=== PATIENT | male | born 1955 | race Caucasian/White ===

== ENCOUNTER → 2024-05-24 09:03 | Outpatient (CLI) | payer MEDICARE, OTHER, SELFPAY ==
[2024-05-24 10:02] LABS: Hematocrit 48.6 % (41-53); Hemoglobin 16.5 g/dL (13.5-17.5); Mean Corpuscular HGB Conc 33.9 % (30-36); Mean Corpuscular Hemoglobin 32.5 PG (26-34); Mean Corpuscular Volume 95.9 fL (80-100); Platelet Count 236 X10^3/uL (150-400); Red Blood Cell Count 5.07 X10^6/uL (4.5-5.9); Red Cell Distribution Width 13.7 % (11.6-14.8); White Blood Cell Count 7.5 X10^3/uL (4.5-11.0)
[2024-05-24 10:35] LABS: Alanine Aminotransferase 22 IU/L (<50); Albumin 4.4 g/dL (3.5-5.0); Albumin Globulin Ratio 1.6 (1.0-2.8); Alkaline Phosphatase 76 U/L (38-126); Aspartate Aminotransferase 24 IU/L (17-59); BUN Creatinine Ratio 22.4 (6-22); Bilirubin Total 0.7 mg/dL (0.2-1.3); Blood Urea Nitrogen 26 mg/dL (9-20); Calcium 9.5 mg/dL (8.4-10.2); Carbon Dioxide 24 mmol/L (22-32); Chloride 106 mmol/L (98-107); Cholesterol 216 mg/dL (140-199); Estimated Glomerular Filt Rate > 60 mL/min (>60); Globulin 2.7 g/dL (1.7-4.1); Glucose 118 mg/dL (80-110); HDL Cholesterol 62 mg/dL (40-60); HEMOLYSIS < 15 (0-50); LDL Cholesterol Calculated 128 mg/dL (<100); Potassium 4.8 mmol/L (3.4-5.1); Sodium 139 mmol/L (137-145); Total Protein 7.1 g/dL (6.3-8.2); Triglycerides 128 mg/dL (35-150)
[2024-05-24 10:58] LABS: Prostate Specific Antigen Scrn 1.67 ng/mL (0.1-4.0)
[2024-05-24 11:03] LABS: Hep C Virus Ab w/Reflex Quant NEGATIVE s/c (NEGATIVE)
== END ==
PROVIDERS: PCP Family Medicine; Referring Provider Family Medicine; Visit Provider Family Medicine
DX: Z12.5 Encounter for screening for malignant neoplasm of prostate (principal); Z11.59 Encounter for screening for other viral diseases; Z00.00 Encounter for general adult medical examination without abnormal findings; I10 Essential (primary) hypertension; F17.200 Nicotine dependence, unspecified, uncomplicated; Z98.890 Other specified postprocedural states
CPT/HCPCS: 36415; 80053; 80061; 85027; 86803; G0103

== ENCOUNTER → 2024-06-11 11:03 | Outpatient (CLI) | payer MEDICARE, OTHER, SELFPAY ==
--- NOTE | 2024-06-11 11:05 | DI.CT.S_ITS ---
PROCEDURE: CT LUNG LOW DOSE SCREENING INDICATIONS: screening TECHNIQUE: Noncontrast 2.0-2.5 mm thick sections acquired from the pulmonary apices to the posterior costophrenic angles. 7 mm thick axial MIP, and 5 mm coronal and sagittal reformats were then acquired. For radiation dose reduction, the following was used: automated exposure control, adjustment of mA and/or kV according to patient size. COMPARISON: None. FINDINGS: Image quality: Diagnostic. Lower Neck: No enlarged lymph nodes. Thyroid: No thyroid nodules which require sonographic follow up, per consensus guidelines. Axillae: No enlarged lymph nodes. Chest Wall: Unremarkable. Bones: DISH changes of the spine. Lungs and Pleura: No pneumothorax or pleural effusions. No consolidation or suspicious nodules. Heart: Mild cardiomegaly. Severe coronary calcifications Thoracic Vessels: The aorta and pulmonary arteries demonstrate normal size. Mediastinum and Jailene: No enlarged lymph nodes. Esophagus: No wall thickening. No hiatal hernia. Upper Abdomen: Fat density 1.5 centimeter left adrenal nodule, benign IMPRESSION: No suspicious pulmonary nodules. LUNG-RADS 1; continued annual screening, if eligible. Clinically Significant Non-pulmonary Findings: Mild cardiomegaly, severe coronary calcifications, DISH changes of the spine. Dictated by: Kristian Lea M.D. on 06/11/2024 at 16:26 Approved by: Kristian Lea M.D. on 06/11/2024 at 16:33
--- NOTE | 2024-06-11 11:05 | DI.US.S_ITS ---
PROCEDURE: US ABD AORTA ANEURYSM SCREEN INDICATIONS: screening for, clinical suspicion of abdominal aortic aneurysm TECHNIQUE: Real-time scanning was performed of the aorta and proximal common iliac arteries, with image documentation. COMPARISON: None. FINDINGS: Aorta: Abdominal aorta is normal in caliber throughout its length measuring approximately: Proximal 2.0 cm diameter Mid aorta 2.4 cm diameter Distal aorta 2.0 cm diameter Right common iliac artery 1.4 cm Left common iliac artery 1.4 cm IMPRESSION: No ultrasound evidence of abdominal aortic aneurysm. Dictated by: Benny Reyes M.D. on 06/11/2024 at 12:31 Approved by: Benny Reyes M.D. on 06/11/2024 at 12:33
== END ==
PROVIDERS: PCP Family Medicine; Referring Provider Family Medicine; Visit Provider Family Medicine
DX: F17.210 Nicotine dependence, cigarettes, uncomplicated (principal); Z12.2 Encounter for screening for malignant neoplasm of respiratory organs; Z13.6 Encounter for screening for cardiovascular disorders; I51.7 Cardiomegaly; I25.10 Atherosclerotic heart disease of native coronary artery without angina pectoris
CPT/HCPCS: 71271; 76706

== ENCOUNTER → 2025-07-05 11:38 | Outpatient (CLI) | payer MEDICARE, OTHER, SELFPAY ==
[2025-07-05 13:55] LABS: Alanine Aminotransferase 28 IU/L (<50); Albumin 4.5 g/dL (3.5-5.0); Albumin Globulin Ratio 1.6 (1.0-2.8); Alkaline Phosphatase 86 U/L (38-126); Blood Urea Nitrogen 20 mg/dL (9-20); Calcium 9.8 mg/dL (8.4-10.2); Carbon Dioxide 24 mmol/L (22-32); Chloride 105 mmol/L (98-107); Cholesterol 143 mg/dL (140-199); Estimated Glomerular Filt Rate > 60 mL/min (>60); Globulin 2.9 g/dL (1.7-4.1); Glucose 100 mg/dL (70-99); HDL Cholesterol 57 mg/dL (40-60); HEMOLYSIS < 15 (0-50); Potassium 4.8 mmol/L (3.4-5.1); Sodium 138 mmol/L (137-145); Total Protein 7.4 g/dL (6.3-8.2); Triglycerides 149 mg/dL (35-150); Uric Acid 6.2 mg/dL (3.5-8.5)
== END ==
PROVIDERS: PCP Family Medicine; Referring Provider Family Medicine; Visit Provider Family Medicine
DX: Z00.00 Encounter for general adult medical examination without abnormal findings (principal); E78.5 Hyperlipidemia, unspecified; Z12.5 Encounter for screening for malignant neoplasm of prostate; F17.200 Nicotine dependence, unspecified, uncomplicated; I10 Essential (primary) hypertension
CPT/HCPCS: 36415; 80053; 80061; 84550; G0103

== ENCOUNTER → 2025-07-09 13:35 | Outpatient (CLI) | payer MEDICARE, OTHER, SELFPAY ==
--- NOTE | 2025-07-09 13:37 | DI.CT.S_ITS ---
PROCEDURE: CT LUNG LOW DOSE SCREENING INDICATIONS: screening TECHNIQUE: Noncontrast 2.0-2.5 mm thick sections acquired from the pulmonary apices to the posterior costophrenic angles. 7 mm thick axial MIP, and 5 mm coronal and sagittal reformats were then acquired. For radiation dose reduction, the following was used: automated exposure control, adjustment of mA and/or kV according to patient size. COMPARISON: [facility], CT, CT LUNG LOW DOSE SCREENING, 06/11/2024, 11:11. FINDINGS: Image quality: Diagnostic. Lungs and Pleura: Small amount of mucus in the dependent trachea at the bifurcation. Airways are otherwise patent without significant bronchial wall thickening or bronchiectasis. Micro nodule in the right middle lobe. Otherwise no significant lung nodules, masses, ground-glass opacities, or consolidations. Bilateral lower lung atelectasis. No pleural effusions or pleural calcifications. Lower Neck: No enlarged lymph nodes. Thyroid: Normal CT appearance. Axillae: No enlarged lymph nodes. Chest Wall: No suspicious chest wall lesions. Bones: Thoracic spine flowing osteophytes. No suspicious bone lesions. Thoracic Vessels: The aorta and pulmonary arteries demonstrate normal size. Mediastinum and Jailene: No enlarged lymph nodes. Heart: Heart size is normal. Moderate coronary artery calcification versus stenting. Mitral annular calcification. No pericardial effusion. Esophagus: No wall thickening. No hiatal hernia. Upper Abdomen: Fat containing left adrenal nodule, stable. Visible portions of upper abdominal organs are otherwise normal. IMPRESSION: No suspicious pulmonary nodules. LUNG-RADS 1; continued annual screening, if eligible. Clinically Significant Non-pulmonary Findings: Coronary artery and mitral annular calcification. Dictated by: Lupe Mcgee M.D. on 07/09/2025 at 16:14 Approved by: Lupe Mcgee M.D. on 07/09/2025 at 16:23
== END ==
LOC: CT 13:37
PROVIDERS: PCP Family Medicine; Referring Provider Family Medicine; Visit Provider Family Medicine
DX: F17.210 Nicotine dependence, cigarettes, uncomplicated (principal); I25.10 Atherosclerotic heart disease of native coronary artery without angina pectoris; I34.81 Nonrheumatic mitral (valve) annulus calcification
CPT/HCPCS: 71271

== ENCOUNTER 2025-07-09 14:06 | Emergency (ER) | payer MEDICARE, OTHER, SELFPAY ==
[2025-07-09 14:13] VITALS: BP 192/95; PULSE 87; RESP 16; TEMP 36.8; O2SAT 99; BMI 29.5
--- NOTE | 2025-07-09 14:18 | DI.RAD.S_ITS ---
PROCEDURE: XR KNEE LT 3V INDICATIONS: pain/redness/swelling TECHNIQUE: 3 views of the knee were acquired. COMPARISON: None. FINDINGS: Moderate degenerative changes of the left knee with joint space narrowing and osteophytes in the patellofemoral greater than medial and lateral compartments Kellgren Bethel grade 3. Moderate knee joint effusion. Nonspecific mild anterior soft tissue swelling. Moderate lateral subluxation and lateral tilt of the patella on the patella sunrise image. No radiographic evidence of displaced fracture, or high attenuation foreign body. IMPRESSION: Degenerative changes as discussed above. Moderate knee joint effusion. Lateral subluxation and tilt of the patella. If symptoms persist or worsen, or there is high clinical suspicion of knee abnormality, MRI could be performed. Dictated by: Benny Reyes M.D. on 07/09/2025 at 15:25 Approved by: Benny Reyes M.D. on 07/09/2025 at 15:34
--- NOTE | 2025-07-09 14:44 | ED.EXTPRO ---
HPI - Extremity Problem <Yolanda Flowers PA-C - Last Filed: 07/09/25 19:28> General Chief complaint: Extremity Problem,Nontraumatic Stated complaint: Left knee pain x 5 days Time Seen by Provider: 07/09/25 14:20 Source: patient Mode of arrival: Wheelchair History of Present Illness HPI Narrative: Ms. Zepeda is a pleasant 70 year old male with a past medical history of hypertension, hyperlipidemia, gout, tobacco use, arthritis, mitral valve repair who presents to the emergency department for left knee pain x5 days. Patient states he does have known arthritis in both of his knees, has had effusions drained from them in the past. Last week around he was working on a ladder when he started developing some pain of the left knee, the knee has become more swollen and painful since then. He denies any direct trauma or injury to the left knee. He actually saw his primary care doctor on Tuesday who scheduled him for a knee arthrocentesis and ABIs on this upcoming Tuesday as the patient has also been having intermittent calf pain. Patient denies any fevers, chills, flu-like symptoms. Related Data Home Medications ?Medication ?Instructions ?Recorded ?Confirmed vitamins A,C,J-hcta-hfifke 4,296 1 cap PO BID 05/24/24 07/05/25 mcg-226 mg-90 mg capsule (ICaps AREDS) Previous Rx's ?Medication ?Instructions ?Recorded losartan 50 mg tablet 50 mg PO DAILY blood pressure #100 07/05/25 tabs rosuvastatin 20 mg tablet 20 mg PO DAILY #100 tabs 07/05/25 hydrocodone 5 mg-acetaminophen 325 1 tab PO Q4-6H PRN pain #10 tabs 07/09/25 mg tablet ketorolac 10 mg tablet 10 mg PO Q8H PRN pain #14 tabs 07/09/25 Allergies Allergy/AdvReac Type Severity Reaction Status Date / Time No Known Drug Allergies Allergy Unverified 07/05/25 11:03 Review of Systems <Yolanda Flowers PA-C - Last Filed: 07/09/25 19:28> Review of Systems ROS Unobtainable: All systems reviewed & are unremarkable except as noted in HPI and below Patient History <Yolanda Flowers PA-C - Last Filed: 07/09/25 19:28> Medical History Tobacco dependence syndrome Hyperlipidemia, unspecified Encounter for subsequent annual wellness visit (AWV) in Medicare patient Ringing in right ear Cataracts, bilateral Kidney stones (~1989) Hemorrhoid (~1977) Mitral valve disease Hypertension Surgical History Anesthesia History of mitral valve repair (~2014) Family History Father Stroke Social History marital status: household members: spouse lives independently: Yes caregiver/support person: No housing: house pets and animals: Yes education level: high school current occupational exposures/hazards: No special masoud needs: No leisure activities: sports and games seatbelt use: always helmet use: Yes water heater temp set < 120 deg: Yes working smoke detector in home: Yes fire extinguisher in home: Yes carbon monox detector in home: Yes firearms in home: No do you feel safe at home: Yes Smoking Status: Current every day smoker alcohol intake: current during the past year weight has: increased > 10 lbs well-balanced diet: about half the time daily servings fruits/ve-1 caffeine: Yes eating out: rarely or never Smoking Status: Current every day smoker tobacco type: cigarettes Exam <Yolanda Flowers PA-C - Last Filed: 07/09/25 19:28> Narrative Exam Narrative: GENERAL: 70 year old patient appears stated age. Well-developed patient, in no acute distress, sitting in wheelchair. HEAD: Atraumatic. Normocephalic. EYES: No scleral icterus. No injection or drainage. NECK: Trachea midline. Cervical ROM intact. CARDIOVASCULAR: Regular rate RESPIRATORY: ?Nonlabored respirations. ?Speaking in clear, full sentences. EXTREMITIES: BL knees exposed. Left knee with obvious edema diffusely. Tenderness to palpation of the anterior/lateral knee, there is very minimal erythema in this area. No edema of the lower extremities/ankles bilaterally. 2+ right DP & PT pulse. 1+ Left PT pulse, unable to palpate or detect DP pulse Left with doppler. Brisk cap refill on all toes. Very limited left knee extension strength 2/5, 5/5 knee flexion strength is present. Patient is only able to flex knee to about 45?. NEURO: AOx3. ?Clear speech. ?SITLT BL LE. SKIN: No rash or erythema of visible areas. Bilateral feet are warm with same coloration. Initial Vital Signs Initial Vital Signs: Vital Signs Temperature 98.3 F 07/09/25 14:13 Pulse Rate 87 07/09/25 14:13 Respiratory Rate 16 07/09/25 14:13 Blood Pressure 192/95 H 07/09/25 14:13 Pulse Oximetry 99 07/09/25 14:13 Oxygen Delivery Method Room Air 07/09/25 14:13 <Mark Maza DO - Last Filed: 07/09/25 21:23> Initial Vital Signs Initial Vital Signs: Vital Signs Temperature 98.3 F 07/09/25 14:13 Pulse Rate 87 07/09/25 14:13 Respiratory Rate 16 07/09/25 14:13 Blood Pressure 192/95 H 07/09/25 14:13 Pulse Oximetry 99 07/09/25 14:13 Oxygen Delivery Method Room Air 07/09/25 14:13 Procedures <Mark Maza DO - Last Filed: 07/09/25 21:23> Joint Aspiration Joint Asp./Inject. 1: Time of procedure: 21:22 Time Out Performed: Yes Side of body: left Joint Aspirated: knee Ultrasound Guidance: No Skin Prep: sterile prep and drape Local Anesthetic: lidocaine 1% Amount of anesthesia used (mL): 2 Needle Size Used: 22G Fluid Obtained: clear Total fluid obtained (mL): 50 Patient Tolerated Procedure: Well and No complications Course <Yolanda Flowers PA-C - Last Filed: 07/09/25 19:28> Orders Ordered: ED Orders 07/09/25 14:18 XR knee LT 3V Stat 07/09/25 15:22 US arterial duplex LE LT Stat 07/09/25 15:37 CBC Auto Diff [Complete Blood Count AUTO DIFF] Stat CMP [Comprehensive Metabolic Panel] Stat CRP [C-Reactive Protein Quant] Stat ESR [Erythrocyte Sedimentation Rate] Stat PT [Prothrombin Time INR] Stat PTT Partial Thromboplastin Sukh Stat 07/09/25 21:19 Body Fluid Culture Stat Body Fluid Culture Urgent Cell Count w Diff Body Fluid Stat 07/09/25 21:20 Gram Stain Stat 07/09/25 21:21 Consult to [facility] Stat Discontinued Medications Hydrocodone Bitart/Acetaminophen (Hydrocodone/Acet 5/325 Tablet) 1 tab PO NOW ONE Stop: 07/09/25 15:06 Last Admin: 07/09/25 15:34 Dose: 1 tab Documented By: KEVIN Hydrocodone Bitart/Acetaminophen (Hydrocodone/Acet 5/325 Tablet) 1 tab PO NOW ONE Stop: 07/09/25 19:37 Last Admin: 07/09/25 19:59 Dose: 1 tab Documented By: KEVIN Ketorolac Tromethamine (Ketorolac 30 Mg/Ml Vial) 30 mg IM NOW ONE Stop: 07/09/25 15:06 Last Admin: 07/09/25 15:45 Dose: Not Given Documented By: KEVIN Ketorolac Tromethamine (Ketorolac 30 Mg/Ml Vial) 15 mg IV NOW ONE Stop: 07/09/25 15:24 Last Admin: 07/09/25 15:33 Dose: 15 mg Documented By: KEVIN Vital Signs Vital signs: Vital Signs - 8 hr 07/09/25 14:13 07/09/25 20:18 Temperature 98.3 F Pulse Rate 87 64 Respiratory Rate 16 16 Blood Pressure 192/95 H 150/82 H Pulse Oximetry 99 99 Oxygen Delivery Method Room Air Room Air <Mark Maza, - Last Filed: 07/09/25 21:23> Orders Ordered: ED Orders 07/09/25 14:18 XR knee LT 3V Stat 07/09/25 15:22 US arterial duplex LE LT Stat 07/09/25 15:37 CBC Auto Diff [Complete Blood Count AUTO DIFF] Stat CMP [Comprehensive Metabolic Panel] Stat CRP [C-Reactive Protein Quant] Stat ESR [Erythrocyte Sedimentation Rate] Stat PT [Prothrombin Time INR] Stat PTT Partial Thromboplastin Sukh Stat 07/09/25 21:19 Body Fluid Culture Stat Body Fluid Culture Urgent Cell Count w Diff Body Fluid Stat 07/09/25 21:20 Gram Stain Stat 07/09/25 21:21 Consult to [facility] Stat Discontinued Medications Hydrocodone Bitart/Acetaminophen (Hydrocodone/Acet 5/325 Tablet) 1 tab PO NOW ONE Stop: 07/09/25 15:06 Last Admin: 07/09/25 15:34 Dose: 1 tab Documented By: KEVIN Hydrocodone Bitart/Acetaminophen (Hydrocodone/Acet 5/325 Tablet) 1 tab PO NOW ONE Stop: 07/09/25 19:37 Last Admin: 07/09/25 19:59 Dose: 1 tab Documented By: KEVIN Ketorolac Tromethamine (Ketorolac 30 Mg/Ml Vial) 30 mg IM NOW ONE Stop: 07/09/25 15:06 Last Admin: 07/09/25 15:45 Dose: Not Given Documented By: KEVIN Ketorolac Tromethamine (Ketorolac 30 Mg/Ml Vial) 15 mg IV NOW ONE Stop: 07/09/25 15:24 Last Admin: 07/09/25 15:33 Dose: 15 mg Documented By: KEVIN Vital Signs Vital signs: Vital Signs - 8 hr 07/09/25 14:13 07/09/25 20:18 Temperature 98.3 F Pulse Rate 87 64 Respiratory Rate 16 16 Blood Pressure 192/95 H 150/82 H Pulse Oximetry 99 99 Oxygen Delivery Method Room Air Room Air MDM - Extremity (Nontraumatic) <Yolanda Flowers PA-C - Last Filed: 07/09/25 19:28> Medical Records Attestation: I reviewed the patient's medical records. Lab Data 07/09/25 15:37 07/09/25 15:37 Labs: Lab Results 07/09/25 Range/Units 15:37 WBC 9.3 (4.5-11.0) X10^3/uL RBC 4.64 (4.5-5.9) X10^6/uL Hgb 14.6 (13.5-17.5) g/dL Hct 43.6 (41-53) % MCV 93.8 (80-100) fL MCH 31.5 (26-34) PG MCHC 33.6 (30-36) % RDW 13.4 (11.6-14.8) % Plt Count 266 (150-400) X10^3/uL Neut % (Auto) 71.2 (50-75) % Lymph % (Auto) 18.4 L (25-40) % [place] % (Auto) 8.2 (3-14) % Eos % (Auto) 1.6 L (2-4) % Baso % (Auto) 0.6 (0-2) % Neut # (Auto) 6600 (1691-0619) /uL Lymph # (Auto) 1700 (0626-3587) /uL [place] # (Auto) 800 (0-900) /uL Eos # (Auto) 100 (0-450) /uL Baso # (Auto) 100 (0-100) /uL ESR 35 H (0-15) MM/HR PT 11.4 (9.4-12.5) SECONDS INR 1.0 (0.9-1.3) APTT 34 (25.1-36.5) SECONDS Sodium 136 L (137-145) mmol/L Potassium 4.5 (3.4-5.1) mmol/L Chloride 104 (98-107) mmol/L Carbon Dioxide 23 (22-32) mmol/L BUN 19 (9-20) mg/dL Creatinine 1.05 (0.66-1.25) mg/dL Estimated GFR > 60 (>60) mL/min BUN/Creatinine Ratio 18.1 (6-22) Glucose 105 H (70-99) mg/dL Calcium 9.6 (8.4-10.2) mg/dL Total Bilirubin 0.5 (0.2-1.3) mg/dL AST 36 (17-59) IU/L ALT 21 (<50) IU/L Alkaline Phosphatase 77 (38-126) U/L C-Reactive Protein 3.0 H (<1.0) mg/dL Total Protein 7.7 (6.3-8.2) g/dL Albumin 4.4 (3.5-5.0) g/dL Globulin 3.3 (1.7-4.1) g/dL Albumin/Globulin Ratio 1.3 (1.0-2.8) Imaging Data Left Knee X-Ray: Radiologist's Impression: PROCEDURE: XR KNEE LT 3V INDICATIONS: pain/redness/swelling TECHNIQUE: 3 views of the knee were acquired. COMPARISON: None. FINDINGS: Moderate degenerative changes of the left knee with joint space narrowing and osteophytes in the patellofemoral greater than medial and lateral compartments Kellgren Bethel grade 3. Moderate knee joint effusion. Nonspecific mild anterior soft tissue swelling. Moderate lateral subluxation and lateral tilt of the patella on the patella sunrise image. No radiographic evidence of displaced fracture, or high attenuation foreign body. IMPRESSION: Degenerative changes as discussed above. Moderate knee joint effusion. Lateral subluxation and tilt of the patella. If symptoms persist or worsen, or there is high clinical suspicion of knee abnormality, MRI could be performed. Dictated by: Benny Reyes M.D. on 07/09/2025 at 15:25 Approved by: Benny Reyes M.D. on 07/09/2025 at 15:34 LLE Arterial US: Radiologist's Impression: PROCEDURE: US ARTERIAL DUPLEX LE LT INDICATIONS: CLAUDICATION TECHNIQUE: Color and pulse Doppler interrogation was performed of the left lower extremity arterial system, with image documentation. COMPARISON: None. FINDINGS: Common femoral artery: 129 cm/sec, with triphasic flow. Deep femoral artery: 109 cm/sec, with triphasic flow. Proximal superficial femoral artery: 124 cm/sec, with triphasic flow. Mid superficial femoral artery: 74 cm/sec, with triphasic flow. Distal superficial femoral artery: 70 cm/sec, with triphasic flow. Popliteal artery: 303 cm/sec, with monophasic flow. Posterior tibial artery: 26 cm/sec, with monophasic flow. Anterior tibial artery/dorsalis pedis: 7 cm/sec, with monophasic flow. Lan-scale imaging description: Trace amount of atherosclerotic plaque is seen in proximal left superficial femoral artery. Mild atherosclerotic plaques are seen in mid to distal superficial femoral artery. Complex fluid collection is noted in soft tissue along anterior, medial and lateral aspect of left knee and measures up to 13.3 x 17.5 x 1.7 cm in size. IMPRESSION: 1. Finding is suggestive of high-grade stenosis involving proximal to mid popliteal artery with diminished flow in lower leg and monophasic waveforms. No significant atherosclerotic plaques are seen within popliteal artery. Finding could represent external compression. 2. Complex fluid collection in anterior left knee soft tissue which may represent soft tissue hematoma. Dictated by: Barber Latif M.D. on 07/09/2025 at 16:48 Approved by: Barber Latif M.D. on 07/09/2025 at 17:05 [facility] Narrative Medical decision making narrative: 70 year old male with a past medical history of hypertension, hyperlipidemia, gout, tobacco use, arthritis who presents to the emergency department for left knee pain x5 days. Differential diagnosis includes but isn't limited to knee effusion, knee arthritis, Carter cyst, pseudogout, gout, septic arthritis, etc. On exam patient is in no acute distress, nontoxic appearing, vital signs appropriate except for elevated blood pressure. He is having pain of his left knee after working on a ladder. He is scheduled for a knee arthrocentesis in 3 days. He is here today due to worsening pain and continued swelling. No direct trauma to the knee, no fevers, calf swelling or color change of the lower legs. Patient has been experiencing chronic left lower extremity claudication which he has ABIs scheduled for Tuesday, however I am unable to find left DP pulse with Doppler, PT pulses detectable, brisk cap refill is present, pulses are strong on the right lower extremity. Therefore we will obtain left lower extremity arterial ultrasound. We will treat pain with Toradol and [place] at this time. Discussed case with the attending physician Dr. Maza, we will obtain CBC, CMP, ESR, CRP. Uric acid was 6.2 four days ago. 1615: Spoke with orthopedic surgeon on-call Dr. Hunter. He is unable to access the patient's imaging at this time however after discussion of the patient history, physical exam and x-ray findings, he does not recommend any acute intervention for the lateral subluxation and tilt of the patella, states that this is often a chronic finding because of the knee arthritis and that he can be treated with supportive care and outpatient ortho follow up. Labs reveal normal WBC count 9.3, hemoglobin 14.6 hematocrit 43.6. Patient does have slight elevation of inflammatory markers with an ESR of 35, a CRP of 3.0. 1755: Spoke with [facility] vascular surgeon on-call, Dr. Freeman. Discussed patient's history, physical exam, ultrasound arterial duplex findings. She states patient likely has chronic disease with external fluid compression, no intervention recommended at this time, advised outpatient follow up/referral to vascular surgery. Consutled again with ortho, Dr. Hunter. He does not suspect that patient's popliteal artery stenosis is related to knee effusion. Based on the patient's history, physical exam, imaging and lab work findings, he is not concerned for septic arthritis at this time however knee could be aspirated for patient comfort, to send for Gram stain and culture etc. Dr. Maza and myself discussed this with the patient, offered discharge with outpatient knee aspiration Tuesday versus aspiration for comfort at this time, patient would like to proceed with knee aspiration. Due to the short-stay area of the emergency department closing at 7:00 p.m., patient will need to be transferred to the main emergency department in order to have a stretcher and have the knee aspiration procedure performed by the nighttime physician, Dr. Maza. Patient is aware and agreeable to transfer of care and stable for transfer at this time. <Mark Maza, DO - Last Filed: 07/09/25 21:23> Lab Data Labs: Lab Results 07/09/25 Range/Units 15:37 WBC 9.3 (4.5-11.0) X10^3/uL RBC 4.64 (4.5-5.9) X10^6/uL Hgb 14.6 (13.5-17.5) g/dL Hct 43.6 (41-53) % MCV 93.8 (80-100) fL MCH 31.5 (26-34) PG MCHC 33.6 (30-36) % RDW 13.4 (11.6-14.8) % Plt Count 266 (150-400) X10^3/uL Neut % (Auto) 71.2 (50-75) % Lymph % (Auto) 18.4 L (25-40) % [place] % (Auto) 8.2 (3-14) % Eos % (Auto) 1.6 L (2-4) % Baso % (Auto) 0.6 (0-2) % Neut # (Auto) 6600 (4805-4281) /uL Lymph # (Auto) 1700 (8490-7259) /uL [place] # (Auto) 800 (0-900) /uL Eos # (Auto) 100 (0-450) /uL Baso # (Auto) 100 (0-100) /uL ESR 35 H (0-15) MM/HR PT 11.4 (9.4-12.5) SECONDS INR 1.0 (0.9-1.3) APTT 34 (25.1-36.5) SECONDS Sodium 136 L (137-145) mmol/L Potassium 4.5 (3.4-5.1) mmol/L Chloride 104 (98-107) mmol/L Carbon Dioxide 23 (22-32) mmol/L BUN 19 (9-20) mg/dL Creatinine 1.05 (0.66-1.25) mg/dL Estimated GFR > 60 (>60) mL/min BUN/Creatinine Ratio 18.1 (6-22) Glucose 105 H (70-99) mg/dL Calcium 9.6 (8.4-10.2) mg/dL Total Bilirubin 0.5 (0.2-1.3) mg/dL AST 36 (17-59) IU/L ALT 21 (<50) IU/L Alkaline Phosphatase 77 (38-126) U/L C-Reactive Protein 3.0 H (<1.0) mg/dL Total Protein 7.7 (6.3-8.2) g/dL Albumin 4.4 (3.5-5.0) g/dL Globulin 3.3 (1.7-4.1) g/dL Albumin/Globulin Ratio 1.3 (1.0-2.8) MDM Narrative Medical decision making narrative: 70 year old male with a past medical history of hypertension, hyperlipidemia, gout, tobacco use, arthritis who presents to the emergency department for left knee pain x5 days. Differential diagnosis includes but isn't limited to knee effusion, knee arthritis, Carter cyst, pseudogout, gout, septic arthritis, etc. On exam patient is in no acute distress, nontoxic appearing, vital signs appropriate except for elevated blood pressure. He is having pain of his left knee after working on a ladder. He is scheduled for a knee arthrocentesis in 3 days. He is here today due to worsening pain and continued swelling. No direct trauma to the knee, no fevers, calf swelling or color change of the lower legs. Patient has been experiencing chronic left lower extremity claudication which he has ABIs scheduled for Tuesday, however I am unable to find left DP pulse with Doppler, PT pulses detectable, brisk cap refill is present, pulses are strong on the right lower extremity. Therefore we will obtain left lower extremity arterial ultrasound. We will treat pain with Toradol and [place] at this time. Discussed case with the attending physician Dr. Maza, we will obtain CBC, CMP, ESR, CRP. Uric acid was 6.2 four days ago. 1615: Spoke with orthopedic surgeon on-call Dr. Hunter. He is unable to access the patient's imaging at this time however after discussion of the patient history, physical exam and x-ray findings, he does not recommend any acute intervention for the lateral subluxation and tilt of the patella, states that this is often a chronic finding because of the knee arthritis and that he can be treated with supportive care and outpatient ortho follow up. Labs reveal normal WBC count 9.3, hemoglobin 14.6 hematocrit 43.6. Patient does have slight elevation of inflammatory markers with an ESR of 35, a CRP of 3.0. 1755: Spoke with [facility] vascular surgeon on-call, Dr. Freeman. Discussed patient's history, physical exam, ultrasound arterial duplex findings. She states patient likely has chronic disease with external fluid compression, no intervention recommended at this time, advised outpatient follow up/referral to vascular surgery. Consutled again with ortho, Dr. Hunter. He does not suspect that patient's popliteal artery stenosis is related to knee effusion. Based on the patient's history, physical exam, imaging and lab work findings, he is not concerned for septic arthritis at this time however knee could be aspirated for patient comfort, to send for Gram stain and culture etc. Dr. Maza and myself discussed this with the patient, offered discharge with outpatient knee aspiration Tuesday versus aspiration for comfort at this time, patient would like to proceed with knee aspiration. Due to the short-stay area of the emergency department closing at 7:00 p.m., patient will need to be transferred to the main emergency department in order to have a stretcher and have the knee aspiration procedure performed by the nighttime physician, Dr. Maza. Patient is aware and agreeable to transfer of care and stable for transfer at this time. Patient had left knee joint drained in superolateral approach with straw-colored fluid 50 mL for which patient tolerated procedure with no complication. Consult placed to [facility] for follow up care. Discharge Plan Departure Patient Disposition: Home Clinical Impression: Effusion of left knee, Popliteal artery stenosis, left Lateral subluxation of left patella Qualifiers: Encounter type: initial encounter Qualified Code(s): S83.012A - Lateral subluxation of left patella, initial encounter Instructions: DI for Knee Effusion Activity Restrictions/Additional Instructions: Dear Duane, Thank you for coming to the emergency department. Today you were evaluated for left knee pain. X-ray showed lateral subluxation of your patella, arthritis, and a knee effusion. Ultrasound of your left leg arteries did reveal stenosis of the popliteal artery. I consulted Orthopedics, Dr. Hunter, and vascular surgery with [facility], Dr. Freeman. Please talk with your primary care doctor about having a formal referral placed to vascular surgery for further management. Please also follow up with Orthopedics for further management. Please use RICE therapy for your pain in addition to ibuprofen/acetaminophen. Rest the painful area. Ice the area of pain/swelling for at least 15 minutes, 4x a day. Compress the area of swelling using a brace, wrap, or splint if applied. Elevate the painful or swollen extremity by supporting it above the level of the heart with pillows when sitting or laying. Please follow up with your primary care doctor within the next 2-3 days for ER follow-up. (If you do not have a PCP you can call [phone]. ?to schedule an appointment with an [facility] Primary Care Provider) IF YOU DEVELOP ANY NEW OR WORSENING SYMPTOMS, RETURN TO THE ER! Please read the attached instructions, they highlight more specific treatments and interventions for you at home. Thank you for letting me participate in your care, Yolanda Flowers PA-C Prescriptions: New hydrocodone-acetaminophen 5-325 mg tablet 1 tab PO Q4-6H PRN (Reason: pain) Qty: 10 0RF ketorolac 10 mg tablet 10 mg PO Q8H PRN (Reason: pain) Qty: 14 0RF Rx Instructions: maximum total duration of 5 days from all oral, intranasal, or parenteral formulations No Action losartan 50 mg tablet 50 mg PO DAILY Qty: 100 3RF rosuvastatin 20 mg tablet 20 mg PO DAILY Qty: 100 3RF ICaps AREDS 4,296 mcg-226 mg-90 mg capsule 1 cap PO BID Referrals: Hipolito Chance DO [Primary Care Provider, Family Practice] Michel Guillermo MD [Physician, Orthopedic Surgery] Referral Note: Left Knee Pain Dayami Freeman MD [Non-Staff, Vascular Surgery] Referral Note: L popliteal stenosis Stand Alone Forms: Patient Portal/API
--- NOTE | 2025-07-09 15:22 | DI.US.S_ITS ---
PROCEDURE: US ARTERIAL DUPLEX LE LT INDICATIONS: CLAUDICATION TECHNIQUE: Color and pulse Doppler interrogation was performed of the left lower extremity arterial system, with image documentation. COMPARISON: None. FINDINGS: Common femoral artery: 129 cm/sec, with triphasic flow. Deep femoral artery: 109 cm/sec, with triphasic flow. Proximal superficial femoral artery: 124 cm/sec, with triphasic flow. Mid superficial femoral artery: 74 cm/sec, with triphasic flow. Distal superficial femoral artery: 70 cm/sec, with triphasic flow. Popliteal artery: 303 cm/sec, with monophasic flow. Posterior tibial artery: 26 cm/sec, with monophasic flow. Anterior tibial artery/dorsalis pedis: 7 cm/sec, with monophasic flow. Lan-scale imaging description: Trace amount of atherosclerotic plaque is seen in proximal left superficial femoral artery. Mild atherosclerotic plaques are seen in mid to distal superficial femoral artery. Complex fluid collection is noted in soft tissue along anterior, medial and lateral aspect of left knee and measures up to 13.3 x 17.5 x 1.7 cm in size. IMPRESSION: 1. Finding is suggestive of high-grade stenosis involving proximal to mid popliteal artery with diminished flow in lower leg and monophasic waveforms. No significant atherosclerotic plaques are seen within popliteal artery. Finding could represent external compression. 2. Complex fluid collection in anterior left knee soft tissue which may represent soft tissue hematoma. Dictated by: Barber Latif M.D. on 07/09/2025 at 16:48 Approved by: Barber Latif M.D. on 07/09/2025 at 17:05
[2025-07-09] MEDS: KETOROLAC 30 MG/ML VIAL 15 MG IV (15:33)
[2025-07-09 15:50] LABS: Add Manual Diff / Slide Review NO; Hematocrit 43.6 % (41-53); Hemoglobin 14.6 g/dL (13.5-17.5); Lymphocytes Absolute Auto 1700 /uL (1100-4500); Mean Corpuscular HGB Conc 33.6 % (30-36); Mean Corpuscular Hemoglobin 31.5 PG (26-34); Mean Corpuscular Volume 93.8 fL (80-100); Platelet Count 266 X10^3/uL (150-400)
[2025-07-09 16:28] LABS: INR 1.0 (0.9-1.3); Prothrombin Time 11.4 SECONDS (9.4-12.5)
[2025-07-09 16:29] LABS: Alanine Aminotransferase 21 IU/L (<50); Albumin 4.4 g/dL (3.5-5.0); Albumin Globulin Ratio 1.3 (1.0-2.8); Alkaline Phosphatase 77 U/L (38-126); Blood Urea Nitrogen 19 mg/dL (9-20); Calcium 9.6 mg/dL (8.4-10.2); Carbon Dioxide 23 mmol/L (22-32); Chloride 104 mmol/L (98-107); Estimated Glomerular Filt Rate > 60 mL/min (>60); Globulin 3.3 g/dL (1.7-4.1); Glucose 105 mg/dL (70-99); HEMOLYSIS 22 (0-50); Potassium 4.5 mmol/L (3.4-5.1); Sodium 136 mmol/L (137-145); Total Protein 7.7 g/dL (6.3-8.2)
[2025-07-09 16:31] LABS: PTT Partial Thromboplastin Tim 34 SECONDS (25.1-36.5)
[2025-07-09 20:18] VITALS: BP 150/82; PULSE 64; RESP 16; O2SAT 99
[2025-07-09 21:45] LABS: Body Fluid Tot Nucleated Cells 7891 /uL
[2025-07-09 21:50] LABS: Body Fluid Clotted? NO CLOTS PRESENT
[2025-07-09 22:18] LABS: Lymphocytes Body Fluid 5 %; MESO/MACRO/MONO Body Fluid 31 %; Neutrophils Body Fluid 64 %
== END 2025-07-09 21:36 | disposition home or self-care (01) ==
PROVIDERS: Family Medicine; Emergency Provider Physician Assistant; PCP Family Medicine
DX: M25.462 Effusion, left knee (principal); S83.012A Lateral subluxation of left patella, initial encounter; I70.202 Unspecified atherosclerosis of native arteries of extremities, left leg
CPT/HCPCS: 20610; 71271; 73562; 80053; 85025; 85610; 85651; 85730; 86140; 87070; 87075; 87205; 89051; 93926; 96374; 99284; J1885

== ENCOUNTER → 2025-07-12 11:08 | Outpatient (CLI) | payer MEDICARE, OTHER, SELFPAY ==
[2025-07-12 11:49] LABS: Crystals Body Fluid - IN-HOUSE Monosodium Urate MSU
== END ==
PROVIDERS: PCP Family Medicine; Visit Provider Family Medicine
DX: M25.462 Effusion, left knee (principal)
CPT/HCPCS: 89060